=== PATIENT | male | born 1975 | race Caucasian/White ===

== ENCOUNTER 2017-12-23 18:01 | Outpatient (CLI) | payer BC, SELFPAY ==
--- NOTE | 2017-12-23 19:02 | XR_ITS ---
EXAM: XR cervical spine 5V HISTORY: Some ITS.REASON: pain and numbness to arm and fingers with movement ORDERING PHYSICIAN: Chelly Reed PATIENT AGE: 42 years COMPARISON: None FINDINGS: Normal alignment. No fracture or dislocation. No lytic or blastic change. No significant degenerative change. The disc spaces are preserved. IMPRESSION: Negative cervical spine
[2018-01-04 20:34] LABS: UTC Influenza A Antigen Negative (Negative); UTC Influenza B Antigen Negative (Negative)
== END 2017-12-23 19:26 | disposition left against medical advice (07) ==
PROVIDERS: Family Provider Nurse Practitioner Family; PCP Nurse Practitioner Family; Visit Provider Nurse Practitioner
DX: M54.2 Cervicalgia (principal); R20.0 Anesthesia of skin
CPT/HCPCS: 72050; 87804

== ENCOUNTER → 2018-01-06 14:34 | Outpatient (CLI) | payer BC, SELFPAY ==
--- NOTE | 2018-01-06 14:32 | MR_ITS ---
MR cervical spine wo con, MR 3-d myelogram/MRCP HISTORY: Left arm pain and numbness, left neck pain ORDERING PHYSICIAN: Chelly Reed PATIENT AGE: 42 years COMPARISON: Radiograph of 12/23/2017 TECHNIQUE: Standard multiplanar multiecho sequences are performed without contrast. 3-D MIP and myelographic images are also rendered and reviewed FINDINGS: Craniocervical junction has an unremarkable appearance. C2-C3: Unremarkable. C3-C4: Mild right foraminal narrowing from mild uncovertebral and facet hypertrophy. C4-C5: Unremarkable. C5-C6: There is a broad-based right paracentral and foraminal disc protrusion/herniation with mild impingement and flattening of the anterior left aspect of the cord causing moderate right lateral recess and foraminal narrowing. There is mild degenerative disc disease at that level. C6-C7: Degenerative disc disease with mild broad-based disc bulge with mild bilateral foraminal narrowing. C7-T1: Unremarkable. IMPRESSION: 1. There is a broad-based right paracentral and foraminal disc protrusion/herniation C5-C6 with mild impingement and flattening of the anterior left aspect of the cord causing moderate right lateral recess and foraminal narrowing. There is mild degenerative disc disease at that level. 2. Degenerative disc disease at C6-C7 with mild broad-based disc bulge with mild bilateral foraminal narrowing 3. Mild right foraminal narrowing is C3-C4 IMPRESSION:
== END ==
PROVIDERS: Family Provider Nurse Practitioner Family; PCP Nurse Practitioner Family; Visit Provider Nurse Practitioner Family
DX: M54.2 Cervicalgia (principal); R20.0 Anesthesia of skin
CPT/HCPCS: 72141; 76376

== ENCOUNTER 2020-10-05 19:22 | Emergency (ER) | payer BC, SELFPAY ==
[2020-10-05 19:25] VITALS: BP 140/82; PULSE 94; RESP 19; TEMP 37; O2SAT 98; BMI 25.9
--- NOTE | 2020-10-05 20:14 | HMH.EDUTC ---
[facility] – [place] Disposition Clinical Impression: Dental abscess, Pain, dental Disposition: Home, Self-Care Condition on Discharge: Good Instructions: Tooth Abscess Additional Instructions: Follow up with your dentist as soon as you can get in. Take the medications as directed. If you have worsening symptoms (such as fever/chills, etc) you may need to return here over the weekend. GO TO THE ER FOR ANY WORSENING SYMPTOMS OR CONCERNS Prescriptions: Ibuprofen [Ibuprofen 800mg Tablet] 800 mg PO Q8HP PRN #30 tab PRN Reason: Moderate Pain Transmission Status: Received by [facility] [employer] Ondansetron [Zofran 4mg ODT] 4 mg PO Q8HP PRN #12 tab.rapdis PRN Reason: Nausea Transmission Status: Received by [employer] clindamycin HCL [Clindamycin HCl 300mg Cap] 300 mg PO Q8 10 Days #30 cap Transmission Status: Received by [facility] Referrals: PCP,No [Primary Care Provider] - Time of Disposition: 20:22 Medical Decision Making - Medical Records Medical records reviewed: No: I reviewed the patient's medical records. - Tyler Inquiry Pt receiving controlled substance: No Vital Signs: 10/05/20 19:25 10/05/20 20:28 Temperature 98.6 F 98.6 F Temperature Source Oral Pulse Rate 94 H Pulse Rate [Right Brachial] 94 H Respiratory Rate 19 19 Blood Pressure 140/82 Blood Pressure [Right Arm] 140/82 Blood Pressure Mean [Right Arm] 101 Blood Pressure Source [Right Arm] Automatic Cuff Blood Pressure Position [Right Arm] Sitting 02 Sat by Pulse Oximetry 98 Oxygen Delivery Method Room Air Orders (Tests/Meds): ED MEDICATIONS Discontinued Medications Generic Name Dose Route Start Last Admin Trade Name Freq PRN Reason Stop Dose Admin Ceftriaxone Sodium 1 gm 10/05/20 19:50 10/05/20 19:59 Ceftriaxone 1gm Vial IM 10/05/20 19:51 1 gm ONCE ONE Administration Protocol Lidocaine HCl 0 ml 10/05/20 19:50 10/05/20 19:59 Lidocaine 1% 5ml Pf Vial IM 10/05/20 19:51 2.1 ml ONCE ONE Administration Ondansetron HCl 4 mg 10/05/20 20:16 10/05/20 20:20 Ondansetron 4mg Odt SL 10/05/20 20:17 4 mg ONCE ONE Administration [facility] – [place] HPI - General Stated complaint: DENTAL PAIN Time Seen by Provider: 10/05/20 19:30 Mode of Arrival: Ambulatory Source of Information: Patient Limitations: No Limitations Description of Symptoms (Recalled from Triage Doc. by RN): PATIENT C/O DENTAL PAIN TO RIGHT UPPER MOUTH, WHICH IS ALSO CAUSING A HEADACHE X 1 WEEK HEENT Symptoms (Recalled from RN notes): Yes Resp Symptoms (Recalled from RN notes): No Skin Symptoms (Recalled from RN notes): No MS Symptoms (Recalled from RN notes): No Functional Status (Recalled from RN notes): WNL - History of Present Illness Provider Complaint: He states that he had a tooth break off and an filling to come out 3 to 4 days ago. Since then he has had pain and swelling of his right upper jaw and the right side of his face. He denies any fever/chilling, but he has hurt so bad that he vomited. - Related Data Previous Rx's Medication Instructions Recorded Ibuprofen [Ibuprofen 800mg 800 mg PO Q8HP PRN #30 tab 10/05/20 Tablet] Ondansetron [Zofran 4mg ODT] 4 mg PO Q8HP PRN #12 tab.rapdis 10/05/20 clindamycin HCL [Clindamycin HCl 300 mg PO Q8 10 Days #30 cap 10/05/20 300mg Cap] Allergies Allergy/AdvReac Type Severity Reaction Status Date / Time Penicillins [PENICILLINS] Allergy Unknown THROAT Verified 12/23/17 17:13 JAYDON SHUT - Worker's Comp Is this a Worker's Comp case?: No [facility] History - Hepatitis A Screen Drug use history?: No High risk sexual behaviors?: No History of sexually transmitted infection?: No Currently employed?: No Childcare worker?: No Do you have indoor plumbing?: Yes Do you have electricity?: Yes Attestation statement:: This patient has been screened for Hepatitis A risk factors. I have reviewed the patient's past medic
[2020-10-05 20:28] VITALS: BP 140/82; PULSE 94; RESP 19; TEMP 37; O2SAT 98
== END 2020-10-05 20:30 | disposition home or self-care (01) ==
PROVIDERS: Emergency Provider Nurse Practitioner Family
DX: K04.7 Periapical abscess without sinus (principal); Z88.0 Allergy status to penicillin
CPT/HCPCS: 96372; 99201

== ENCOUNTER → 2023-04-06 17:00 | Outpatient (CLI) | payer BC, SELFPAY ==
[2023-04-06 17:13] LABS: Basophils % 0.4 % (0.1-2.0); Eosinophils # 0.3 K/mm3 (0.0-0.4); Eosinophils % 2.5 % (0.1-12.0); Hematocrit 50.7 % (42.0-52.0); Hemoglobin 17.1 g/dL (14.1-18.0); Lymphocytes # 3.1 K/mm3 (0.7-4.5); Lymphocytes % 30.2 % (10-50); Mean Corpuscular HGB Conc 33.7 g/dL (31.8-35.4); Mean Corpuscular Hemoglobin 31.4 pg (27.0-31.2); Mean Corpuscular Volume 93.1 fl (80-94); Mean Platelet Volume 8.6 fl (7.4-10.4); Monocytes # 0.5 K/mm3 (0.1-1.0); Monocytes % 5.2 % (1.7-9.3); Neutrophils # 6.2 K/mm3 (1.8-7.8); Neutrophils % 61.6 % (37.0-80.0); Platelet Count 236 K/mm3 (142-424); Red Blood Count 5.45 M/mm3 (4.60-6.20); Red Cell Distribution Width 13.4 % (11.5-17.5); White Blood Count 10.1 K/mm3 (4.8-10.8)
[2023-04-06 17:19] LABS: Alanine Aminotransferase 32 U/L (12-78); Albumin Level 4.6 g/dl (3.5-5.0); Albumin/Globulin Ratio 1.8 (1.1-1.8); Alkaline Phosphatase 131 U/L (38-126); Anion Gap 19.5 mEq/L (5-15); Aspartate Amino Transferase 35 U/L (17-59); Bilirubin,Total 0.8 mg/dl (0.2-1.3); Blood Urea Nitrogen 6 mg/dl (9-20); Calcium 9.5 mg/dl (8.4-10.2); Carbon Dioxide 28 mmol/L (22.0-30.0); Chloride 94 mmol/L (98-107); Chol/HDL Ratio 4.8 (1-3.5); Cholesterol 297 mg/dl (140-200); Estimated Glomerular Filt Rate 103 ml/min (>60); GFR (African American) 125 ML/MIN (>60); Globulin 2.6 g/dL (1.3-3.2); Glucose 85 mg/dl (74-100); HDL Cholesterol 62 mg/dl (40-60); Potassium 4.5 mmoL/L (3.5-5.1); Sodium 137 mmol/L (136-145); Total Protein,Serum 7.2 g/dl (6.3-8.2); Triglycerides 248 mg/dl (30-150); VLDL Cholesterol 50 mg/dL (0-40)
[2023-04-06 17:30] LABS: Direct LDL Cholesterol 200.38 mg/dL (100-129)
[2023-04-06 17:50] LABS: Thyroid Stimulating Hormone 1.78 uIU/mL (0.465-4.68)
[2023-04-06 17:58] LABS: Hemoglobin A1C 5.3 % (4.0-6.0)
[2023-04-09 17:15] LABS: Alkaline Phosphatase 129 IU/L (44-121); Bone Fraction: 29 % (12-68); Intestinal Frac.: 0 % (0-18); Liver Fraction: 71 % (13-88)
== END ==
PROVIDERS: PCP Nurse Practitioner Family; Visit Provider Nurse Practitioner Family
DX: R42 Dizziness and giddiness (principal); R55 Syncope and collapse; I10 Essential (primary) hypertension; Z13.220 Encounter for screening for lipoid disorders; Z13.1 Encounter for screening for diabetes mellitus; Z79.899 Other long term (current) drug therapy
CPT/HCPCS: 80053; 80061; 83036; 84075; 84080; 84443; 85025

== ENCOUNTER → 2023-04-14 10:07 | Outpatient (CLI) | payer BC, SELFPAY ==
--- NOTE | 2023-04-14 10:09 | CA_ITS ---
FINAL REPORT TECHNIQUE: Color Doppler, duplex Doppler and henao scale sonography of the bilateral neck arterial vasculature was performed. Velocities were measured in the carotid arteries. Stenosis evaluation based on the validated velocity criteria. CLINICAL HISTORY: dizziness, syncope, dyspnea, tinnitus, smoker, HTN, HLD. FINDINGS: The peak systolic velocity of the right common carotid artery is 117cm/s. The peak systolic velocity of the right internal carotid artery is 95 cm/s and end diastolic velocity 35 cm/s. A small amount of plaque is present. The right external carotid artery is patent. The right vertebral artery is patent with antegrade flow. The peak systolic velocity of the left common carotid artery is 183 cm/s. The peak systolic velocity of the left internal carotid artery is 98 cm/s and end diastolic velocity 43 cm/s. A small amount of plaque is present. The left external carotid artery is patent.The left vertebral artery is patent with antegrade flow. IMPRESSION: Less than 50% bilateral carotid stenoses. Bilateral patent vertebral arteries with antegrade flow. If indicated, CTA or MRA could further evaluate. Reviewed, Interpreted and Dictated by Jose L Cruz III, MD Transcribed by Susan Damian Authenticated and [facility]
== END ==
PROVIDERS: PCP Nurse Practitioner Family; Visit Provider Nurse Practitioner Family
DX: R06.00 Dyspnea, unspecified (principal); R42 Dizziness and giddiness; R55 Syncope and collapse; H93.19 Tinnitus, unspecified ear
CPT/HCPCS: 93880

== ENCOUNTER → 2023-04-15 12:14 | Outpatient (CLI) | payer BC, SELFPAY ==
--- NOTE | 2023-04-15 12:15 | NM_ITS ---
APPROVED REPORT Exam: Nuclear Stress Test Indication: HTN, HYPERLIPIDEMIA, TOB USE, FM HX, C.P., SOB, PALPITATIONS, FATIGUE, DIZZINESS Patient Location: Outpatient AR Tech:BRENDA Kelly RT(R)(N) Ht: 6 ft 3 in Wt: 211 lbs HR: 98 bpm BP: 155/95 mmHg BSA: 2.24 m2 TID: 0.99 BMI: 26.3 History: HTN, HYPERLIPIDEMIA, TOB USE, FM HX, C.P., SOB, PALPITATIONS, FATIGUE, DIZZINESS Procedure: Patient exercised on Shawn protocol 7:20 minutes and sec, resting heart rate 98 bpm, resting blood pressure 155/95 mmHg, with exercise maximum heart rate achived was 152 bpm which is 88 % of the maximum predicted heart rate and blood pressure was 188/100 mmHg. Test was stopped due to fatigue. Patient denied any complaint of chest pain. Patient has average exercise capacity, achieved 10.1 METs of workload on treadmill, the blood pressure response to exercise was adequate. Cardiac Stress and Resting SPECT Images: Cardiac Stress and Resting SPECT images were obtained using technetium 99m Myoview 32.9 mCi stress and 10.41 mCi at rest. Resting and stress images in both supine and prone positions demonstrate a large fixed perfusion defect in the inferior and inferoseptal LV wall from the base and extending distally towards the apex. Gated imaging demonstrates a normal LV systolic global function. There is mild hypokinesis of the inferior and inferoseptal LV estrada. The LVEF is calculated at 57%. Conclusion: Large fixed perfusion defect in the inferior and inferoseptal LV estrada from the base and extending distally towards the apex. 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 No reversible ischemia. Gated imaging demonstrates a normal LV systolic global function. There is mild hypokinesis of the inferior and inferoseptal LV estrada. The LVEF is calculated at 57%. Electronically signed by : Criss Allen, 04/15/2023 18:47:27
--- NOTE | 2023-04-15 14:10 | CA_ITS ---
APPROVED REPORT Exam: Exercise Treadmill Technologist: Amanda Adam, Ht: 6 ft 3 in Wt: 212 lbs BSA: 2.25 m2 HR: 86 bpm BP: 143/97 mmHg Rhythm: NSR Medical History Medications: HCTZ,,,,, Zoloft,,,,, Stress Test Details Test: Shawn HR Resting HR: 98 bpm Max Heart Rate (APMHR): 172 bpm Max HR Achieved: 152 bpm Target HR (85% APMHR): 146 bpm % of APMHR: 88 Recovery HR: 99 bpm BP Resting BP: 155/95 mmHg Max BP: 188/100 mmHg Recovery BP: 155.0/91.0 mmHg ECG Resting ECG: NSR, cannot R/O old septal MN. Stress EC mm upsloping ST depression in lateral leads Maximum ST Deviation: 1.0 mm Arrhythmia: None Recovery ST Change: ST devliation resolved Clinical Reason for Termination: Dyspnea, generalized fatigue Exercise duration: 07:20 min Highest Stage Achieved: Exercise capacity: 10.1 METs Stress ECG Conclusion Walked 7:20 on Shawn protocol. Max HR: 152 % of PM: 88% Max BP: 188/100 METs: 10.1 Test stopped due to: SOB, fatigue. Symptoms: SOB. No CP. Arrhythmias/Ectopys: Rare PVC. ST-T Changes: 1mm upsloping ST depression in lateral leads. Conclusion: Average functional capacity for age and sex. Normal BP response to exercise. At baseline, ECG showed normal sinus rhythm, cannot rule out old septal MN. At peak stress, there were 1mm upsloping ST depression in lateral leads that resolved within 3 minutes of recovery. Myoview images reported separately. Test Summary REST . . . . . . . Sitting REST . . . . . . . Standing REST 03:28 0.0 0.0 98 . 155/ 95 . . Stage 1 01:00 10.0 1.7 108 . . . . Stage 1 02:00 10.0 1.7 114 . . . . Stage 1 03:00 10.0 1.7 116 . 176/102 . . Stage 2 01:00 12.0 2.5 127 . . . . Stage 2 02:00 12.0 2.5 134 . . . . Stage 2 03:00 12.0 2.5 137 . 188/100 . . Stage 3 01:00 14.0 3.4 149 . . . . Stage 3 01:20 14.0 3.4 151 . . . Stop exercise at 07:20 RECOVERY 01:00 0.0 0.0 134 . . . . RECOVERY 02:00 0.0 0.0 117 . . . . RECOVERY 03:00 0.0 0.0 115 . 147/ 93 . . RECOVERY 04:00 0.0 0.0 103 . 172/ 97 . . RECOVERY 05:00 0.0 0.0 99 . 155/ 91 . . RECOVERY 05:21 0.0 0.0 102 . 155/ 91 . . Electronically signed by : Criss Allen, 04/15/2023 18:30:46
== END ==
PROVIDERS: PCP Nurse Practitioner Family; Visit Provider Nurse Practitioner Family
DX: R06.00 Dyspnea, unspecified (principal); R07.9 Chest pain, unspecified; R42 Dizziness and giddiness; R55 Syncope and collapse; I10 Essential (primary) hypertension; E78.5 Hyperlipidemia, unspecified; Z72.0 Tobacco use
CPT/HCPCS: 78452; 93017; A9502

== ENCOUNTER → 2023-04-30 07:42 | Outpatient (CLI) | payer BC, SELFPAY | PROVIDERS: PCP Family Medicine; Visit Provider Nurse Practitioner Family | DX: R06.00 Dyspnea, unspecified (principal); R07.9 Chest pain, unspecified; R42 Dizziness and giddiness; R55 Syncope and collapse; I10 Essential (primary) hypertension; E78.5 Hyperlipidemia, unspecified; R94.39 Abnormal result of other cardiovascular function study; Z72.0 Tobacco use | CPT/HCPCS: 93306 ==

== ENCOUNTER 2023-05-19 08:45 | Day surgery (SDC) | payer BC, SELFPAY ==
[2023-05-19] VITALS (11 sets, daily range): BP systolic 104–124; BP diastolic 64–85; PULSE 65–85; RESP 16–20; TEMP 37; O2SAT 90–98; BMI 26.1
--- NOTE | 2023-05-19 07:07 | IR_ITS ---
APPROVED REPORT Patient Location: Outpatient Candy Puller: BRENDA Davis RT (R) PROCEDURES Left heart catheterization Left ventriculogram Selective coronary angiogram INDICATION High risk abnormal Myoview, Angina pectoris, Informed consent was obtained prior to the procedure. COMPLICATIONS None Estimated Blood Loss: Less than 10 mls TECHNIQUE One percent lidocaine used to anesthetize the right anterior aspect of the wrist. The right radial artery was accessed via the Seldinger technique. A 6 Lithuanian sheath was placed in the right radial artery. 150 mg magnesium sulfate, 800 mcg of nitroglycerin, 1mg Lidocaine and 5000 U Heparin were given through the arterial sheath. The papa catheter was also used to perform left heart catheterization, left ventriculogram and selective coronary angiogram. At the end of the procedure the sheath was removed good hemostasis was achieved using Traclet band, patient was transferred to the postop holding area in stable condition. ANGIOGRAPHIC RESULTS The left main artery Normal The left anterior descending artery Has proximal and mid vessel 20 to 30% diffuse stenoses The circumflex artery Nondominant yet still large and has diffuse 10 to 20% luminal irregularities The right coronary artery Is dominant and has mid vessel 10 to 20% luminal irregularities The MEMBRENO ventriculogram reveals Normal 65% The left ventricular end-diastolic pressure 10 mmHg IMPRESSION Mild nonflow limiting coronary disease Normal ejection fraction Normal left ventricular end-diastolic pressure PLAN 1. Aggressive risk factor modification 2. Continue medical management Electronically signed by : Les Quinones MD 05/19/2023 10:11:11
[2023-05-19 09:34] LABS: Basophils # 0.1 K/mm3 (0-0.2); Basophils % 0.5 % (0.1-2.0); Eosinophils # 0.4 K/mm3 (0.0-0.4); Eosinophils % 3.8 % (0.1-12.0); Hematocrit 46.7 % (42.0-52.0); Hemoglobin 16.2 g/dL (14.1-18.0); Lymphocytes # 2.1 K/mm3 (0.7-4.5); Mean Corpuscular HGB Conc 34.6 g/dL (31.8-35.4); Mean Corpuscular Hemoglobin 31.2 pg (27.0-31.2); Mean Corpuscular Volume 90.1 fl (80-94); Mean Platelet Volume 7.8 fl (7.4-10.4); Monocytes # 0.6 K/mm3 (0.1-1.0); Monocytes % 5.6 % (1.7-9.3); Neutrophils # 7.7 K/mm3 (1.8-7.8); Neutrophils % 71.1 % (37.0-80.0); Platelet Count 245 K/mm3 (142-424); Red Blood Count 5.18 M/mm3 (4.60-6.20); Red Cell Distribution Width 13.3 % (11.5-17.5); White Blood Count 10.8 K/mm3 (4.8-10.8)
[2023-05-19 09:39] LABS: INR 0.95 (0.9-1.1); Prothrombin Time 10.3 seconds (10.1-12.5)
[2023-05-19 09:40] LABS: Chloride 98 mmol/L (98-107)
[2023-05-19 09:41] LABS: Potassium 3.8 mmoL/L (3.5-5.1); Sodium 138 mmol/L (136-145)
[2023-05-19 09:43] LABS: Blood Urea Nitrogen 7 mg/dl (9-20); Creatinine Clearance Estimated 173 mL/min (50-200); Estimated Glomerular Filt Rate 120 ml/min (>60); GFR (African American) 146 ML/MIN (>60)
[2023-05-19 09:44] LABS: Anion Gap 12.8 mEq/L (5-15); Carbon Dioxide 31 mmol/L (22.0-30.0); Glucose 108 mg/dl (74-100)
== END 2023-05-19 12:59 | disposition home or self-care (01) ==
PROVIDERS: PCP Nurse Practitioner Family; Visit Provider Internal Medicine
DX: I25.118 Atherosclerotic heart disease of native coronary artery with other forms of angina pectoris (principal); I10 Essential (primary) hypertension; E78.5 Hyperlipidemia, unspecified; K21.9 Gastro-esophageal reflux disease without esophagitis; R94.39 Abnormal result of other cardiovascular function study; F17.210 Nicotine dependence, cigarettes, uncomplicated; Z79.899 Other long term (current) drug therapy
CPT/HCPCS: 80048; 85025; 85610; 93458; 99152; C1725; C1769; J1644; Q9967

== ENCOUNTER → 2023-05-29 10:28 | Outpatient (CLI) | payer BC, SELFPAY | PROVIDERS: PCP Nurse Practitioner Family; Visit Provider Nurse Practitioner | DX: R00.2 Palpitations (principal); K21.9 Gastro-esophageal reflux disease without esophagitis | CPT/HCPCS: 93270 ==

== ENCOUNTER → 2023-07-09 16:49 | Outpatient (CLI) | payer BC, SELFPAY | PROVIDERS: PCP Nurse Practitioner Family; Visit Provider Nurse Practitioner Family | DX: G47.30 Sleep apnea, unspecified (principal); R06.83 Snoring | CPT/HCPCS: G0399 ==

== ENCOUNTER → 2023-08-17 16:24 | Outpatient (CLI) | payer BC, SELFPAY ==
[2023-08-17 16:35] LABS: Microscopic, Urine URINE MICROSCOPIC (MICROSCOPIC)
[2023-08-17 17:22] LABS: Appearance,Urine CLEAR (Clear); Bilirubin,Urine Negative (Negative); Blood, Urine Negative (Negative); Color,Urine YELLOW (Yellow); Glucose,Urine (UA) Negative (Negative); Ketones,Urine Negative (Negative); Leukocyte Esterase,Urine Negative (Negative); Nitrate,Urine Negative (Negative); Protein,Urine Negative (Negative); Urobilinogen,Urine 0.2 EU/dl (0.2)
[2023-08-17 17:24] LABS: Basophils # 0.1 K/mm3 (0-0.2); Basophils % 0.4 % (0.1-2.0); Eosinophils # 0.5 K/mm3 (0.0-0.4); Hematocrit 45.3 % (42.0-52.0); Hemoglobin 15.5 g/dL (14.1-18.0); Lymphocytes # 2.5 K/mm3 (0.7-4.5); Lymphocytes % 21.5 % (10-50); Mean Corpuscular HGB Conc 34.1 g/dL (31.8-35.4); Mean Corpuscular Hemoglobin 31.4 pg (27.0-31.2); Mean Platelet Volume 8.5 fl (7.4-10.4); Monocytes # 0.6 K/mm3 (0.1-1.0); Monocytes % 4.7 % (1.7-9.3); Neutrophils # 8.1 K/mm3 (1.8-7.8); Neutrophils % 69.3 % (37.0-80.0); Platelet Count 259 K/mm3 (142-424); Red Blood Count 4.93 M/mm3 (4.60-6.20); White Blood Count 11.7 K/mm3 (4.8-10.8)
[2023-08-17 17:33] LABS: Squamous Epithelial Cell,Urine Occasional #/hpf (0-5)
[2023-08-17 17:55] LABS: Erythrocyte Sedimentation Rate 15 mm/hr (0-15)
[2023-08-17 18:10] LABS: Alanine Aminotransferase 32 U/L (12-78); Albumin Level 4.4 g/dl (3.5-5.0); Albumin/Globulin Ratio 1.8 (1.1-1.8); Alkaline Phosphatase 94 U/L (38-126); Anion Gap 13.5 mEq/L (5-15); Aspartate Amino Transferase 36 U/L (17-59); Bilirubin,Total 0.6 mg/dl (0.2-1.3); Blood Urea Nitrogen 7 mg/dl (9-20); Calcium 9.1 mg/dl (8.4-10.2); Carbon Dioxide 29 mmol/L (22.0-30.0); Chloride 91 mmol/L (98-107); Chol/HDL Ratio 5.3 (1-3.5); Cholesterol 244 mg/dl (140-200); Estimated Glomerular Filt Rate 103 ml/min (>60); GFR (African American) 125 ML/MIN (>60); Globulin 2.5 g/dL (1.3-3.2); Glucose 115 mg/dl (74-100); HDL Cholesterol 46 mg/dl (40-60); Magnesium 1.7 mg/dl (1.6-2.3); Potassium 3.5 mmoL/L (3.5-5.1); Sodium 130 mmol/L (136-145); Total Protein,Serum 6.9 g/dl (6.3-8.2); Triglycerides 178 mg/dl (30-150); VLDL Cholesterol 36 mg/dL (0-40)
[2023-08-17 18:12] LABS: Alanine Aminotransferase 33 U/L (12-78); Albumin Level 4.4 g/dl (3.5-5.0); Alkaline Phosphatase 95 U/L (38-126); Aspartate Amino Transferase 36 U/L (17-59); Bilirubin,Direct 0.1 mg/dl (0.0-0.4); Bilirubin,Indirect 0.5 mg/dL (0.0-0.9); Bilirubin,Total 0.6 mg/dl (0.2-1.3); Bilirubin,Unconjugated 0.5 mg/dL (0.0-1.1); Total Protein,Serum 7.1 g/dl (6.3-8.2)
[2023-08-17 18:20] LABS: Direct LDL Cholesterol 155.17 mg/dL (100-129)
[2023-08-17 18:26] LABS: 25-OH Vitamin D, Total 18.2 ng/mL (30-100)
[2023-08-17 19:02] LABS: Vitamin B12 430 pg/mL (239-931)
[2023-08-17 19:40] LABS: Iron 137 ug/dL (49-181)
[2023-08-17 19:55] LABS: Total Iron Binding Capacity 344 ug/dL (261-462)
[2023-08-17 20:16] LABS: Ferritin 121 ng/ml (17.9-464)
[2023-08-19 12:46] LABS: C-Reactive Protein 3.5 mg/L (0-4)
[2023-08-19 16:20] LABS: Anti-Centromere B Antibodies <0.2 AI (0.0-0.9); Anti-DNA (DS) Ab Qn 1 IU/mL (0-9); Anti-Jo-1 <0.2 AI (0.0-0.9); Anti-Smith Antibody <0.2 AI (0.0-0.9); Antichromatin Antibodies <0.2 AI (0.0-0.9); Antiscleroderma-70 Antibodies <0.2 AI (0.0-0.9); RNP Antibodies <0.2 AI (0.0-0.9); Sjogren's Anti-SS-A <0.2 AI (0.0-0.9); Sjogren's Anti-SS-B <0.2 AI (0.0-0.9); Tissue Transglutaminase IgA Ab <2 U/mL (0-3); Tissue Transglutaminase IgG Ab <2 U/mL (0-5)
[2023-08-20 08:38] LABS: Cytoplasmic (C-ANCA) <1:20 titer (Neg:<1:20); Perinuclear (P-ANCA) <1:20 titer (Neg:<1:20)
[2023-08-20 14:15] LABS: Saccharomyces cerevisiae, IgA <20.0 Units (0.0-24.9); Saccharomyces cerevisiae, IgG <20.0 Units (0.0-24.9)
== END ==
PROVIDERS: PCP Nurse Practitioner Family; Visit Provider Nurse Practitioner Family
DX: I10 Essential (primary) hypertension (principal); E78.5 Hyperlipidemia, unspecified; G89.29 Other chronic pain; R10.84 Generalized abdominal pain; R20.0 Anesthesia of skin; R29.898 Other symptoms and signs involving the musculoskeletal system
CPT/HCPCS: 36415; 80053; 80061; 80076; 81001; 82306; 82607; 82728; 83516; 83540; 83550; 83735; 85025; 85651; 86140; 86225; 86235; 86256; 86671; 87086

== ENCOUNTER → 2023-08-26 23:35 | Outpatient (CLI) | payer BC, SELFPAY ==
[2023-08-26 18:24] LABS: Alanine Aminotransferase 24 U/L (12-78); Albumin Level 4.6 g/dl (3.5-5.0); Albumin/Globulin Ratio 1.7 (1.1-1.8); Alkaline Phosphatase 85 U/L (38-126); Anion Gap 13.8 mEq/L (5-15); Aspartate Amino Transferase 29 U/L (17-59); Blood Urea Nitrogen 8 mg/dl (9-20); Calcium 9.1 mg/dl (8.4-10.2); Carbon Dioxide 28 mmol/L (22.0-30.0); Chloride 91 mmol/L (98-107); Creatine Kinase 112 U/L (55-170); Estimated Glomerular Filt Rate 103 ml/min (>60); GFR (African American) 125 ML/MIN (>60); Globulin 2.7 g/dL (1.3-3.2); Glucose 79 mg/dl (74-100); Potassium 3.8 mmoL/L (3.5-5.1); Sodium 129 mmol/L (136-145); Total Protein,Serum 7.3 g/dl (6.3-8.2)
[2023-08-26 18:37] LABS: Intact Parathyroid Hormone 98.4 pg/mL (7.5-53.5)
== END ==
PROVIDERS: PCP Nurse Practitioner Family; Visit Provider Nurse Practitioner Family
DX: M79.18 Myalgia, other site (principal); E87.1 Hypo-osmolality and hyponatremia; E55.9 Vitamin D deficiency, unspecified
CPT/HCPCS: 80053; 82550; 83970

== ENCOUNTER → 2023-09-02 16:46 | Outpatient (CLI) | payer BC, SELFPAY ==
[2023-09-02 18:56] LABS: Alanine Aminotransferase 31 U/L (12-78); Albumin Level 4.4 g/dl (3.5-5.0); Albumin/Globulin Ratio 1.6 (1.1-1.8); Alkaline Phosphatase 88 U/L (38-126); Anion Gap 13.6 mEq/L (5-15); Aspartate Amino Transferase 37 U/L (17-59); Bilirubin,Total 0.7 mg/dl (0.2-1.3); Blood Urea Nitrogen 7 mg/dl (9-20); Calcium 9.3 mg/dl (8.4-10.2); Carbon Dioxide 32 mmol/L (22.0-30.0); Chloride 95 mmol/L (98-107); Chol/HDL Ratio 4.7 (1-3.5); Cholesterol 184 mg/dl (140-200); Estimated Glomerular Filt Rate 120 ml/min (>60); GFR (African American) 146 ML/MIN (>60); Globulin 2.7 g/dL (1.3-3.2); Glucose 78 mg/dl (74-100); HDL Cholesterol 39 mg/dl (40-60); Potassium 4.6 mmoL/L (3.5-5.1); Sodium 136 mmol/L (136-145); Total Protein,Serum 7.1 g/dl (6.3-8.2); Triglycerides 167 mg/dl (30-150); VLDL Cholesterol 33 mg/dL (0-40)
[2023-09-02 19:07] LABS: Direct LDL Cholesterol 112.54 mg/dL (100-129)
== END ==
PROVIDERS: PCP Nurse Practitioner Family; Visit Provider Nurse Practitioner Family
DX: E78.5 Hyperlipidemia, unspecified (principal); I10 Essential (primary) hypertension; E87.1 Hypo-osmolality and hyponatremia
CPT/HCPCS: 36415; 80053; 80061

== ENCOUNTER → 2023-10-27 20:31 | Outpatient (CLI) | payer BC, SELFPAY | PROVIDERS: PCP Nurse Practitioner Family; Visit Provider Nurse Practitioner Family | DX: R29.818 Other symptoms and signs involving the nervous system (principal); R06.83 Snoring; R53.83 Other fatigue; I10 Essential (primary) hypertension; E83.10 Disorder of iron metabolism, unspecified; Z72.0 Tobacco use | CPT/HCPCS: 95810 ==

== ENCOUNTER → 2023-11-16 16:41 | Outpatient (CLI) | payer BC, SELFPAY ==
[2023-11-16 17:21] LABS: Iron 124 ug/dL (49-181)
[2023-11-16 17:30] LABS: Total Iron Binding Capacity 382 ug/dL (261-462)
== END ==
PROVIDERS: PCP Nurse Practitioner Family; Visit Provider Nurse Practitioner Family
DX: E83.10 Disorder of iron metabolism, unspecified (principal); I10 Essential (primary) hypertension; R06.83 Snoring; R29.818 Other symptoms and signs involving the nervous system; R53.83 Other fatigue; Z72.0 Tobacco use
CPT/HCPCS: 36415; 82728; 83540; 83550

== ENCOUNTER 2024-02-22 19:05 | Outpatient (CLI) | payer BC, SELFPAY ==
[2024-02-22 18:23] LABS: Basophils # 0.1 K/mm3 (0-0.2); Basophils % 1.3 % (0.1-2.0); Eosinophils # 0.4 K/mm3 (0.0-0.4); Eosinophils % 3.8 % (0.1-12.0); Hematocrit 47.8 % (42.0-52.0); Hemoglobin 16.3 g/dL (14.1-18.0); Lymphocytes # 2.6 K/mm3 (0.7-4.5); Lymphocytes % 26.4 % (10-50); Mean Corpuscular HGB Conc 34.2 g/dL (31.8-35.4); Mean Corpuscular Hemoglobin 33.3 pg (27.0-31.2); Mean Corpuscular Volume 97.5 fl (80-94); Mean Platelet Volume 9.8 fl (7.4-10.4); Monocytes # 0.7 K/mm3 (0.1-1.0); Monocytes % 6.9 % (1.7-9.3); Neutrophils # 6.2 K/mm3 (1.8-7.8); Neutrophils % 61.7 % (37.0-80.0); Platelet Count 291 K/mm3 (142-424); Red Blood Count 4.91 M/mm3 (4.60-6.20); Red Cell Distribution Width 13.7 % (11.5-17.5)
[2024-02-22 18:40] LABS: Alanine Aminotransferase 26 U/L (12-78); Albumin Level 4.5 g/dl (3.5-5.0); Alkaline Phosphatase 105 U/L (38-126); Anion Gap 11.6 mEq/L (5-15); Aspartate Amino Transferase 30 U/L (17-59); Bilirubin,Total 0.5 mg/dl (0.2-1.3); Blood Urea Nitrogen 8 mg/dl (9-20); Calcium 9.5 mg/dl (8.4-10.2); Carbon Dioxide 30 mmol/L (22.0-30.0); Chloride 97 mmol/L (98-107); Chol/HDL Ratio 5.9 (1-3.5); Cholesterol 178 mg/dl (140-200); Estimated Glomerular Filt Rate 103 ml/min (>60); GFR (African American) 124 ML/MIN (>60); Globulin 2.2 g/dL (1.3-3.2); Glucose 100 mg/dl (74-100); HDL Cholesterol 30 mg/dl (40-60); Potassium 4.6 mmoL/L (3.5-5.1); Sodium 134 mmol/L (136-145); Total Protein,Serum 6.7 g/dl (6.3-8.2); Triglycerides 242 mg/dl (30-150); VLDL Cholesterol 48 mg/dL (0-40)
[2024-02-22 18:51] LABS: Direct LDL Cholesterol 101.15 mg/dL (100-129)
[2024-02-22 18:58] LABS: 25-OH Vitamin D, Total 23.6 ng/mL (30-100)
[2024-02-22 19:12] LABS: Thyroid Stimulating Hormone 2.25 uIU/mL (0.465-4.68)
[2024-02-22 20:10] LABS: Iron 86 ug/dL (49-181)
[2024-02-22 20:19] LABS: Total Iron Binding Capacity 345 ug/dL (261-462)
[2024-02-22 20:46] LABS: Ferritin 95.6 ng/ml (17.9-464)
== END 2024-02-22 23:59 ==
LOC: LAB.DROPOF 19:05
PROVIDERS: PCP Nurse Practitioner Family; Visit Provider Nurse Practitioner Family
DX: R53.83 Other fatigue (principal); E83.10 Disorder of iron metabolism, unspecified; I10 Essential (primary) hypertension; E78.5 Hyperlipidemia, unspecified; E66.3 Overweight; Z68.29 Body mass index [BMI] 29.0-29.9, adult; Z72.0 Tobacco use
CPT/HCPCS: 80053; 80061; 82306; 82728; 83540; 83550; 84439; 84443; 85025

== ENCOUNTER 2024-04-01 18:54 | Outpatient (CLI) | payer BC, SELFPAY ==
[2024-04-01 19:25] LABS: Chol/HDL Ratio 4.4 (1-3.5); Cholesterol 176 mg/dl (140-200); HDL Cholesterol 40 mg/dl (40-60); Triglycerides 98 mg/dl (30-150); VLDL Cholesterol 20 mg/dL (0-40)
[2024-04-01 19:36] LABS: Direct LDL Cholesterol 121.81 mg/dL (100-129)
== END 2024-04-01 23:59 | disposition home or self-care (01) ==
LOC: LAB.DROPOF 18:55
PROVIDERS: PCP Nurse Practitioner Family; Visit Provider Nurse Practitioner Family
DX: E78.5 Hyperlipidemia, unspecified (principal)
CPT/HCPCS: 80061

== ENCOUNTER 2024-05-20 15:30 | Outpatient (CLI) | payer BC, SELFPAY ==
[2024-05-20 15:34] LABS: Adenovirus F 40/41, stool Not Detected (NotDetected); Astrovirus Not Detected (NotDetected); Campylobacter Not Detected (NotDetected); Cryptosporidium Not Detected (NotDetected); Cyclospora Cayetanesis Not Detected (NotDetected); Entamoeba histolytica Not Detected (NotDetected); Enteroaggregative E coli Not Detected (NotDetected); Enteropathogenic E coli Not Detected (NotDetected); Enterotoxigenic E coli Not Detected (NotDetected); Giardia lamblia Not Detected (NotDetected); Norovirus Not Detected (NotDetected); Plesimonas Shigalloides, PCR Not Detected (NotDetected); Rotavirus A Not Detected (NotDetected); Salmonella, PCR Not Detected (NotDetected); Sapovirus Not Detected (NotDetected); Shiga-like toxin E coli Not Detected (NotDetected); Shigella Enterovasive E coli Not Detected (NotDetected); Vibrio Cholerae Not Detected (NotDetected); Vibrio, PCR Not Detected (NotDetected); Yersinia Entercolitica, PCR Not Detected (NotDetected)
[2024-05-23 08:47] LABS: Clostridium Difficile A/B, PCR Detected (NotDetected)
== END 2024-05-20 23:59 | disposition home or self-care (01) ==
LOC: LAB.DROPOF 15:31
PROVIDERS: PCP Nurse Practitioner Family; Visit Provider Nurse Practitioner Family
DX: B83.9 Helminthiasis, unspecified (principal)
CPT/HCPCS: 87045; 87177; 87507

== ENCOUNTER 2024-10-04 15:27 | Outpatient (CLI) | payer BC, SELFPAY ==
[2024-10-04 15:53] LABS: Basophils # 0.1 K/mm3 (0-0.2); Basophils % 0.9 % (0.1-2.0); Eosinophils # 0.5 K/mm3 (0.0-0.4); Eosinophils % 4.5 % (0.1-12.0); Hematocrit 48.5 % (42.0-52.0); Hemoglobin 16.8 g/dL (14.1-18.0); Lymphocytes # 3.3 K/mm3 (0.7-4.5); Lymphocytes % 30.4 % (10-50); Mean Corpuscular HGB Conc 34.6 g/dL (31.8-35.4); Mean Corpuscular Hemoglobin 31.6 pg (27.0-31.2); Mean Corpuscular Volume 91.3 fl (80-94); Mean Platelet Volume 8.2 fl (7.4-10.4); Monocytes # 0.8 K/mm3 (0.1-1.0); Neutrophils # 6.2 K/mm3 (1.8-7.8); Neutrophils % 57.2 % (37.0-80.0); Platelet Count 270 K/mm3 (142-424); Red Blood Count 5.32 M/mm3 (4.60-6.20); Red Cell Distribution Width 13.2 % (11.5-17.5); White Blood Count 10.9 K/mm3 (4.8-10.8)
[2024-10-04 16:10] LABS: Albumin Level 4.6 g/dl (3.5-5.0); Chloride 99 mmol/L (98-107); Sodium 133 mmol/L (136-145)
[2024-10-04 16:11] LABS: Potassium 4.4 mmoL/L (3.5-5.1)
[2024-10-04 16:13] LABS: Alanine Aminotransferase 28 U/L (12-78); Alkaline Phosphatase 67 U/L (38-126); Anion Gap 12.4 mEq/L (5-15); Aspartate Amino Transferase 31 U/L (17-59); Bilirubin,Direct 0.2 mg/dl (0.0-0.4); Bilirubin,Indirect 0.5 mg/dL (0.0-0.9); Bilirubin,Total 0.7 mg/dl (0.2-1.3); Bilirubin,Unconjugated 0.5 mg/dL (0.0-1.1); Blood Urea Nitrogen 7 mg/dl (9-20); Carbon Dioxide 26 mmol/L (22.0-30.0); Cholesterol 215 mg/dl (140-200); Estimated Glomerular Filt Rate 90 ml/min (>60); GFR (African American) 109 ML/MIN (>60); Total Protein,Serum 7.1 g/dl (6.3-8.2); Triglycerides 191 mg/dl (30-150); VLDL Cholesterol 38 mg/dL (0-40)
[2024-10-04 16:14] LABS: Calcium 9.6 mg/dl (8.4-10.2); Chol/HDL Ratio 5.7 (1-3.5); Glucose 84 mg/dl (74-100); HDL Cholesterol 38 mg/dl (40-60)
[2024-10-04 16:25] LABS: Direct LDL Cholesterol 150.08 mg/dL (100-129)
[2024-10-04 17:30] LABS: 25-OH Vitamin D, Total 58.3 ng/mL (30-100)
[2024-10-04 17:45] LABS: Thyroid Stimulating Hormone 3.52 uIU/mL (0.465-4.68)
[2024-10-04 19:43] LABS: Free T4 (Free Thyroxine) 1.22 ng/dl (0.78-2.19)
== END 2024-10-04 23:59 | disposition home or self-care (01) ==
LOC: LAB 15:28
PROVIDERS: PCP Nurse Practitioner Family; Visit Provider Nurse Practitioner
DX: I10 Essential (primary) hypertension (principal); E78.5 Hyperlipidemia, unspecified; E55.9 Vitamin D deficiency, unspecified
CPT/HCPCS: 36415; 80048; 80061; 80076; 82306; 84439; 84443; 85025

== ENCOUNTER 2025-02-10 14:06 | Outpatient (CLI) | payer OTHER, SELFPAY ==
[2025-02-10 14:43] LABS: Basophils # 0.1 K/mm3 (0-0.2); Basophils % 0.5 % (0.1-2.0); Eosinophils # 0.5 K/mm3 (0.0-0.4); Eosinophils % 4.5 % (0.1-12.0); Hematocrit 43.6 % (42.0-52.0); Hemoglobin 15.6 g/dL (14.1-18.0); Mean Corpuscular HGB Conc 35.8 g/dL (31.8-35.4); Mean Corpuscular Hemoglobin 32.2 pg (27.0-31.2); Mean Corpuscular Volume 90.1 fl (80-94); Mean Platelet Volume 10.7 fl (7.4-10.4); Monocytes # 0.8 K/mm3 (0.1-1.0); Monocytes % 7.1 % (1.7-9.3); Neutrophils # 6.8 K/mm3 (1.8-7.8); Neutrophils % 60.3 % (37.0-80.0); Platelet Count 279 K/mm3 (142-424); Red Blood Count 4.84 M/mm3 (4.60-6.20); Red Cell Distribution Width 12.4 % (11.5-17.5); White Blood Count 11.3 K/mm3 (4.8-10.8)
[2025-02-10 15:08] LABS: Albumin Level 4.7 g/dl (3.5-5.0); Chloride 99 mmol/L (98-107)
[2025-02-10 15:09] LABS: Potassium 4.1 mmoL/L (3.5-5.1); Sodium 133 mmol/L (136-145)
[2025-02-10 15:11] LABS: Anion Gap 10.1 mEq/L (5-15); Bilirubin,Unconjugated 0.5 mg/dL (0.0-1.1); Blood Urea Nitrogen 10 mg/dl (9-20); Carbon Dioxide 28 mmol/L (22.0-30.0); Estimated Glomerular Filt Rate 79 ml/min (>60); GFR (African American) 96 ML/MIN (>60); Total Protein,Serum 6.7 g/dl (6.3-8.2)
[2025-02-10 15:12] LABS: Alanine Aminotransferase 28 U/L (12-78); Alkaline Phosphatase 74 U/L (38-126); Aspartate Amino Transferase 30 U/L (17-59); Bilirubin,Indirect 0.6 mg/dL (0.0-0.9); Bilirubin,Total 0.6 mg/dl (0.2-1.3); Calcium 9.7 mg/dl (8.4-10.2); Chol/HDL Ratio 4.7 (1-3.5); Cholesterol 166 mg/dl (140-200); Glucose 93 mg/dl (74-100); HDL Cholesterol 35 mg/dl (40-60); Triglycerides 173 mg/dl (30-150); VLDL Cholesterol 35 mg/dL (0-40)
[2025-02-10 15:23] LABS: Direct LDL Cholesterol 112.72 mg/dL (100-129)
== END 2025-02-10 23:59 | disposition home or self-care (01) ==
LOC: LAB 14:07
PROVIDERS: PCP Nurse Practitioner Family; Visit Provider Nurse Practitioner
DX: I25.10 Atherosclerotic heart disease of native coronary artery without angina pectoris (principal); I10 Essential (primary) hypertension; E78.5 Hyperlipidemia, unspecified; E83.10 Disorder of iron metabolism, unspecified
CPT/HCPCS: 36415; 80048; 80061; 80076; 85025

== ENCOUNTER → 2025-04-03 20:25 | Outpatient (CLI) | payer OTHER, SELFPAY | LOC: SL 20:27 | PROVIDERS: PCP Nurse Practitioner Family; Visit Provider Specialist | DX: G47.31 Primary central sleep apnea (principal) | CPT/HCPCS: 95811 ==

== ENCOUNTER 2025-07-25 14:24 | Outpatient (CLI) | payer OTHER, SELFPAY ==
--- OUTSIDE RECORDS SUMMARY | 2025-07-25 14:35 | XMS_ITS | Encounter Summary ---
Author Organization Healthcare Address [address] [id number] Care Team Providers Care Retail Service Technician Name Role Phone Chelly Reed SHANE Primary Care Provider [phone]- [phone] Reason for Referral * Consultation (Routine) - Authorized Specialty Diagnoses / Procedures Referred By Contac t Referred To Contact Dentist / Pain Medicine Diagnoses Obstructive sleep apnea (adult) (pediatric) Shaila Figueroa MD [address] [facility] [address] [place] [address] Phone: tel: fax: Sophia Rg, DDS [address] [facility] [address] [place] [address] Phone: tel: fax: Referral ID Status Reason Start Date Expiration Date V isits Requested Visits Authorized [id number] Authorized 04/28/2024 10/28/2025 1 1 Encounter Details Date Type Department Care Team (Late st Contact Info) Description 04/28/2024 Community [facility] [address] [place] [address] Shaila Figueroa MD [address] [facility] [address] [place] [address] Obstructive sleep apnea (adult) (pediatric) (Primary Dx) Social History Tobacco Use Types Packs/Day Years Used Date Smoking Tobacco: Every Day Alcohol Use Standard Drinks/Week Comments Yes 0 (1 standard drink = 0.6 oz pure alcohol) Alcoholic Drinks/day: Occasional alcohol use Sex and Gender Information Value Date Recorded Sex Assigned at Not on file Legal Sex Male 8:50 PM EDT Gender Identity Not on file Sexual Orientation Not on file documented as of this encounter Plan of Treatment Scheduled Referrals Name Type Priority Associated Diagnoses Order Schedule Ambulatory Referral to Orofacial Pain Outpatient Referral Routine Obstructive sleep apnea (adult) (pediatric) Expected: 04/28/2024 (Approximate), Expires: 10/29/2025 documented as of this encounter Visit Diagnoses Diagnosis Obstructive sleep apnea (adult) (pediatric)- Primary documented in this encounter Care Teams Retail Service Technician Relationship Specialty Start Date End Date Chelly Reed APRN [address] [place] [address] PCP - General 04/12/21 documented as of this encounter
--- OUTSIDE RECORDS SUMMARY | 2025-07-25 14:35 | XMS_ITS | Clinical Summary ---
Author Organization Healthcare Address [address] [place] [address] Care Team Providers Care Cable Repairer Name Role Phone Chelly Reed APRN Primary Care Provider +1- [phone] Family History Medical History Relation Name Comments Diabetes Other 1 Hypertension Other 2 Other cancer Other 3 Heart attack Other 4 Thyroid disease Other 5 Relation Name Status Comments Other 1 Other 2 Other 3 Other 4 Other 5 Social History Tobacco Use Types Packs/Day Years Used Date Smoking Tobacco: Every Day Alcohol Use Standard Drinks/Week Comments Yes 0 (1 standard drink = 0.6 oz pure alcohol) Alcoholic Drinks/day: Occasional alcohol use Sex and Gender Information Value Date Recorded Sex Assigned at Not on file Legal Sex Male 8:50 PM EDT Gender Identity Not on file Sexual Orientation Not on file Last Filed Vital Signs Vital Sign Reading Time Taken Comments Blood Pressure 132/102 04/30/2023 9:02 AM EDT Pulse 75 04/30/2023 9:02 AM EDT Temperature - - Respiratory Rate - - Oxygen Saturation - - Inhaled Oxygen Concentration - - Weight 96.2 kg (212 lb) 04/30/2023 9:02 AM EDT Height 190.5 cm (6' 3 ) 04/30/2023 9:02 AM EDT Body Mass Index 26.5 04/30/2023 9:02 AM EDT Plan of Treatment Health Maintenance Due Date Last Done Comments [facility]-Depression Screening 1974 [facility]-Infant/Child/Adol SDOH Screenings 1974 [facility]- SDOH Screenings 1992 [facility]-Adult SDOH Screenings 1992 [facility]-DTaP,Tdap,and Td Vaccine s (1 - Tdap) 1993 [facility]-Hepatitis B Vaccines (1 of 3 - 19+ 3-dose series) 1993 CT Colonography 2019 Colonoscopy 2019 FIT-DNA 2019 FIT 2019 FOBT 2019 Sigmoidoscopy 2019 [facility]-Colorectal Cancer Screening 2019 [id number] Vaccine ( season) 2024 12/11/2021, 03/13/2021, 02/13/2021 [facility]-Pneumococcal Vaccine: 50 + Years (1 of 1 - PCV) 2024 [facility]-Zoster Vaccines (1 of 2) 2024 [facility]-Influenza Vaccine (#1) 2025 HPV Vaccines Aged Out No longer eligi ble based on patient's age to complete this topic [facility]-HIB Vaccines Aged Out No longer e ligible based on patient's age to complete this topic [facility]-Hepatitis A Vaccines Aged Out No longer eligible based on patient's age to complete this topic [facility]-IPV Vaccines Aged Out No longer e ligible based on patient's age to complete this topic [facility]-Rotavirus Vaccines Aged Out No lo nger eligible based on patient's age to complete this topic Insurance Care Teams Cable Repairer Relationship Specialty Start Date End Date Chelly Reed APRN [address] [place], [place] [id number] PCP - General 04/12/21
[2025-07-25 15:23] LABS: Hematocrit 41.8 % (42.0-52.0); Hemoglobin 14.4 g/dL (14.1-18.0); Immature Granulocytes % 0.3 %; Mean Corpuscular HGB Conc 34.4 g/dL (31.8-35.4); Mean Corpuscular Hemoglobin 31.7 pg (27.0-31.2); Mean Corpuscular Volume 92.1 fl (80-94); Nucleated Red Blood Cells % 0 %; Platelet Count 223 K/mm3 (142-424); Red Blood Count 4.54 M/mm3 (4.60-6.20); Red Cell Distribution Width-SD 42.5 fL; White Blood Count 7.7 K/mm3 (4.8-10.8)
[2025-07-25 16:16] LABS: Alanine Aminotransferase 41 U/L (12-78); Albumin Level 4.4 g/dl (3.5-5.0); Alkaline Phosphatase 64 U/L (38-126); Anion Gap 13.6 mEq/L (5-15); Aspartate Amino Transferase 43 U/L (17-59); Bilirubin,Direct 0.3 mg/dl (0.0-0.4); Bilirubin,Indirect 0.3 mg/dL (0.0-0.9); Bilirubin,Total 0.6 mg/dl (0.2-1.3); Bilirubin,Unconjugated 0.4 mg/dL (0.0-1.1); Blood Urea Nitrogen 6 mg/dl (9-20); Calcium 9.7 mg/dl (8.4-10.2); Carbon Dioxide 27 mmol/L (22.0-30.0); Chloride 99 mmol/L (98-107); Cholesterol 111 mg/dl (140-200); Creatinine,Serum 0.80 mg/dl (0.66-1.25); Estimated Glomerular Filt Rate 102 ml/min (>60); GFR (African American) 124 ML/MIN (>60); Glucose 85 mg/dl (74-100); HDL Cholesterol 34 mg/dl (40-60); Potassium 3.6 mmoL/L (3.5-5.1); Sodium 136 mmol/L (136-145); Total Protein,Serum 6.5 g/dl (6.3-8.2); Triglycerides 164 mg/dl (30-150)
== END 2025-07-25 23:59 | disposition home or self-care (01) ==
LOC: LAB 14:25
PROVIDERS: PCP Nurse Practitioner Family; Visit Provider Nurse Practitioner
DX: I25.10 Atherosclerotic heart disease of native coronary artery without angina pectoris (principal); I10 Essential (primary) hypertension; E78.5 Hyperlipidemia, unspecified
CPT/HCPCS: 36415; 80048; 80061; 80076; 85025

== ENCOUNTER 2025-10-23 14:51 | Outpatient (CLI) | payer OTHER, SELFPAY ==
--- NOTE | 2025-10-23 15:00 | MR_ITS ---
PROCEDURE INFORMATION: Exam: MR Left Lower Extremity Joint Without Contrast, Knee Exam date and time: 10/23/2025 3:04 PM Age: 50 years old Clinical indication: Pain; Knee; Left; Additional info: Worsening bilateral knee pain with sharp posterior pain. Worse in the right TECHNIQUE: Imaging protocol: Magnetic resonance imaging of the left lower extremity joint without contrast. Exam focused on the knee. COMPARISON: No relevant prior studies available. FINDINGS: Bones/joints: There is a very small joint effusion. There is a small focal area of osteochondral signal abnormality inferior medial patellar facet. A similar small area of osteochondral signal abnormality is noted along the posterolateral aspect of the weight-bearing medial femoral condyle. There is edema like signal within the anterior suprapatellar fat pad with slight convex posterior border. Medial meniscus: Unremarkable. No tear. Lateral meniscus: Unremarkable. No tear. Anterior cruciate ligament: Unremarkable. No tear. Posterior cruciate ligament: Unremarkable. No tear. Medial capsule and supporting structures: Unremarkable. No tear. Lateral capsule and supporting structures: Unremarkable. No tear. Extensor mechanism of knee: There is mild quadriceps the patellar tendinosis. No tear. Soft tissues: Unremarkable. IMPRESSION: 1. Small focal areas of osteochondral signal abnormality involving the inferior medial patellar facet and the posterolateral aspect of the weight-bearing medial femoral condyle. 2. Very small joint effusion. 3. Mild quadriceps and patellar tendinosis. 4. Anterior suprapatellar fat pad impingement syndrome of uncertain clinical significance. 5. No meniscal or ligament tear.
--- OUTSIDE RECORDS SUMMARY | 2025-10-23 15:02 | XMS_ITS | Clinical Summary ---
Author Organization Healthcare Address [address] [place] [address] Care Team Providers Care Account Installation Specialist Name Role Phone Chelly Reed APRN Primary Care Provider +1- [phone] Family History Medical History Relation Name Comments [...] Date Last Done Comments [facility]-Depression Screening 1974 [facility]-/Child/Adol SDOH Screenings 1974 [facility]- SDOH Screenings 1992 [facility]-Adult SDOH Screenings 1992 [facility]-DTaP,Tdap,and Td Vaccine s (1 - Tdap) 1993 [facility]-Hepatitis B Vaccines (1 of 3 - 19+ 3-dose series) 1993 CT Colonography 2019 Colonoscopy 2019 FIT-DNA 2019 FIT 2019 FOBT 2019 Sigmoidoscopy 2019 [facility]-Colorectal Cancer Screening 2019 [facility]-Pneumococcal Vaccine: 50 + Years (1 of 1 - PCV) 2024 [facility]-Zoster Vaccines (1 of 2) 2024 [id number] Vaccine (4 - season) 2025 12/11/2021, 03/13/2021, 02/13/2021 [facility]-Influenza Vaccine (#1) 2025 HPV Vaccines Aged [...] to complete this topic Insurance Care Teams Account Installation Specialist Relationship Specialty Start Date End Date Chelly Reed APRN [address] [place], [place] [id number] PCP - General 04/12/21
--- OUTSIDE RECORDS SUMMARY | 2025-10-23 15:02 | XMS_ITS | Encounter Summary ---
Author Organization Healthcare Address [address] [id number] Care Team Providers Care Heading And Priming Operator Name Role Phone Chelly Reed SHANE Primary Care Provider +1- [phone] Reason for Referral * Consultation (Routine) - Authorized Specialty Diagnoses / Procedures Referred By Contac t Referred To Contact Dentist / Pain Medicine Diagnoses Obstructive sleep apnea (adult) (pediatric) Shaila Figueroa MD [address] [facility] [address] [place] [address] Phone: tel: fax: Sophia Rg, DDS [address] [facility] [address] [place] [address] Phone: tel: fax: Referral ID Status Reason Start Date Expiration Date V isits Requested Visits Authorized [id number] Authorized 04/28/2024 10/28/2025 1 1 Encounter Details Date Type Department Care Team (Late st Contact Info) Description 04/28/2024 Community [facility] Community [facility] [address] [place] [address] Shaila Figueroa MD [address] [facility] [address] [place] [address] Obstructive sleep apnea (adult) (pediatric) [...] Primary documented in this encounter Care Teams Heading And Priming Operator Relationship Specialty Start Date End Date Chelly Reed APRN [address] [place] [address] PCP - General 04/12/21 documented as of this encounter
--- NOTE | 2025-10-23 15:45 | MR_ITS ---
PROCEDURE INFORMATION: Exam: MR Right Lower Extremity Joint Without Contrast, Knee Exam date and time: 10/23/2025 3:04 PM Age: 50 years old Clinical indication: Pain; Knee; Right; Additional info: Right knee injury, edema, pain TECHNIQUE: Imaging protocol: Magnetic resonance imaging of the right lower extremity joint without contrast. Exam focused on the knee. COMPARISON: None. FINDINGS: Bones/joints: There is no joint effusion. The cartilaginous coverings are intact and normal in appearance. Fat pads of knee: There is inflammatory change of the anterior suprapatellar fat pad, series 4, image 14. Medial meniscus: Horizontal tear, posterior horn, medial meniscus extending to the superior articular surface, series 6, image 19. Lateral meniscus: The lateral meniscus is unremarkable. No tear. Anterior cruciate ligament: The anterior cruciate ligament is intact and unremarkable. Posterior cruciate ligament: Posterior cruciate ligament is intact and unremarkable. Medial capsule and supporting structures: The medial collateral ligament is normal. Lateral capsule and supporting structures: The iliotibial band is normal. The fibular collateral ligament is normal. Biceps femoris tendon is normal. Extensor mechanism of knee: The quadriceps tendon appears normal. Patellar tendon appears normal. Soft tissues: The soft tissues are unremarkable. Other findings: The visible skeletal structures are unremarkable. IMPRESSION: 1. Horizontal tear, posterior horn, medial meniscus extending to the superior articular surface. 2. Findings of anterior suprapatellar fat pad impingement syndrome.
== END 2025-10-23 23:59 | disposition home or self-care (01) ==
LOC: RAD 14:52
PROVIDERS: PCP Nurse Practitioner Family; Visit Provider Nurse Practitioner Family
DX: S83.241A Other tear of medial meniscus, current injury, right knee, initial encounter (principal); M25.861 Other specified joint disorders, right knee; M25.862 Other specified joint disorders, left knee; M76.52 Patellar tendinitis, left knee; M89.8X5 Other specified disorders of bone, thigh; S89.92XA Unspecified injury of left lower leg, initial encounter; R93.6 Abnormal findings on diagnostic imaging of limbs
CPT/HCPCS: 73721

== ENCOUNTER 2025-10-31 14:11 | Outpatient (CLI) | payer OTHER, SELFPAY ==
--- NOTE | 2025-10-31 14:11 | XR_ITS ---
FINAL REPORT CLINICAL HISTORY: right knee pain FINDINGS: AP, lateral and oblique views of the right knee were obtained. There is no prior exam for comparison. There is no acute osseous abnormality of the right knee. The joint space is preserved. The soft tissues are normal. There is no joint effusion. IMPRESSION: No acute osseous abnormality of the right knee. Reviewed, Interpreted and Dictated by Ana Ruiz MD Transcribed by Malka Martinez Authenticated and . [facility]
--- NOTE | 2025-10-31 14:11 | XR_ITS ---
FINAL REPORT CLINICAL HISTORY: left knee pain FINDINGS: AP, lateral and oblique views of the left knee were obtained. There is no prior exam for comparison. There is no acute osseous abnormality of the left knee. The joint space is preserved. The soft tissues are normal. There is no joint effusion. IMPRESSION: No acute osseous abnormality of the left knee. Reviewed, Interpreted and Dictated by Ana Ruiz MD Transcribed by Malka Martinez Authenticated and . [facility]
--- OUTSIDE RECORDS SUMMARY | 2025-10-31 14:18 | XMS_ITS | Clinical Summary ---
Author Organization Healthcare Address [address] [place] [address] Care Team Providers Care Armament Mechanic Name Role Phone Chelly Reed APRN Primary Care Provider +1- [phone] Family History Medical History Relation Name Comments [...] 2024 UKY-Zoster Vaccines (1 of 2) 2024 [id number] Vaccine (4 - season) 2025 12/11/2021, 03/13/2021, [...] to complete this topic Insurance Care Teams Armament Mechanic Relationship Specialty Start Date End Date Chelly Reed APRN [address] [place], [place] [id number] PCP - General 04/12/21
--- OUTSIDE RECORDS SUMMARY | 2025-10-31 14:18 | XMS_ITS | Encounter Summary ---
Author Organization [facility] Address [address] [place] [address] Care Team Providers Care Channel Executive Name Role Phone Chelly Reed APRN Primary Care Provider +1- [phone] Encounter Details Date Type Department Care Team (Late st Contact Info) Description 04/28/2024 Community Orders Community Practice [address] [place] [address] Shaila Figueroa MD [address] [place] [id number] Obstructive sleep apnea (adult) (pediatric) (Primary Dx) [...] as of this encounter Plan of Treatment Not on file documented as of this encounter Visit Diagnoses Diagnosis Obstructive sleep apnea (adult) (pediatric)- Primary documented in this encounter Care Teams Channel Executive Relationship Specialty Start Date End Date Chelly Reed APRN [address] [place], [place] [id number] PCP - General 04/12/21 documented as of this encounter
== END 2025-10-31 23:59 | disposition home or self-care (01) ==
LOC: RAD 14:11
PROVIDERS: PCP Nurse Practitioner Family; Visit Provider Student in an Organized Health Care Education/Training Program
DX: M25.462 Effusion, left knee (principal); M25.561 Pain in right knee; M25.562 Pain in left knee
CPT/HCPCS: 73562